=== PATIENT | female | born 1970 | race Caucasian/White ===

== ENCOUNTER 2022-05-01 13:50 | Emergency (ER) | payer OTHER ==
[~2022-05-01] VITALS: Ht 152.4 cm; Wt 74.8 kg
[2022-05-01 14:26] VITALS: BP 127/76
[2022-05-01] MEDS ORDERED: KETOROLAC 30 MG/ML VIAL IM ONE (14:35)
--- NOTE | 2022-05-01 14:41 | NUR ---
52/F PRESENTS TO ED WITH C/O LOWER ABD PAIN RADIATING TO LOWER BACK PAIN SINCE YESTERDAY. PATIENT REPORTS SHE TOOK MOTRIN WITH NO RELIEF. DENIES N/V/D, FEVERS, REPORTS INTERMITTENT EPISODES OF DYSURIA, DENIES HEMATURIA.
[2022-05-01 14:54] LABS: BASOPHILS % (AUTO) 0.6 % (0.0-2.0); EOSINOPHILS # (AUTO) 0.9 K/uL (0-0.4); EOSINOPHILS % (AUTO) 10.9 % (0.0-4.0); HEMOGLOBIN 13.9 g/dL (12.0-16.0); LYMPHOCYTES # (AUTO) 2.2 K/uL (2.5-16.5); LYMPHOCYTES % (AUTO) 25.9 % (20.5-51.1); MEAN CORPUSCULAR HEMOGLOBIN 32 pg (27-31); MEAN CORPUSCULAR HGB CONC 34 g/dL (33-37); MEAN CORPUSCULAR VOLUME 93.7 fL (80-94); MONOCYTES # (AUTO) 0.4 K/uL (0.8-1.0); MONOCYTES % (AUTO) 5.3 % (1.7-9.3); NEUTROPHILS # (AUTO) 4.9 K/uL (1.8-7.7); NEUTROPHILS % (AUTO) 57.3 % (42.2-75.2); PLATELET COUNT (AUTO) 261 K/uL (140-450); RED BLOOD CELL COUNT(AUTO) 4.38 MIL/uL (4.20-5.40); RED CELL DISTRIBUTION WIDTH 13.4 % (11.6-13.7); WHITE BLOOD COUNT (AUTO) 8.5 K/uL (4.8-10.8)
[2022-05-01 14:56] LABS: APPEARANCE,URINE CLEAR (CLEAR); BILIRUBIN,URINE NEGATIVE (NEGATIVE); BLOOD, URINE 1+ (NEGATIVE); COLOR,URINE YELLOW (YELLOW); LEUKOCYTE ESTERASE ,URINE NEGATIVE (NEGATIVE); NITRITE, URINE NEGATIVE (NEGATIVE); UGLUCOSE NEGATIVE (NEGATIVE)
[2022-05-01 15:09] LABS: OTHER CASTS, URINE None Seen /LPF (None Seen); WBC,URINE 0-5 /HPF (0-5)
[2022-05-01 15:27] LABS: ALBUMIN 4.1 g/dL (3.4-5.0); ANION GAP 11.6 (8-16); CARBON DIOXIDE 33.6 mmol/L (21-32); CREATININE 0.8 mg/dL (0.6-1.3); POTASSIUM 4.2 mmol/L (3.5-5.1); TOTAL BILIRUBIN 0.3 mg/dL (0.0-1.0)
--- NOTE | 2022-05-01 15:30 | NUR ---
PT TAKEN TO CT VIA WHEELCHAIR
--- NOTE | 2022-05-01 15:40 | NUR ---
PT BROUGHT BACK FROM CT VIA WHEELCHAIR
[2022-05-01] MEDS ORDERED: LID5T TP (16:49)
[2022-05-01] MEDS ORDERED: CYCL-711 PO (16:49)
[2022-05-01 17:08] VITALS: BP 115/76
--- NOTE | 2022-05-01 17:08 | NUR ---
Patient discharged with v/s stable. Written and verbal after care instructions FOR MUSCLE SPRAIN AND BACK INJURY PREVENTION given and explained. Patient alert, oriented and verbalized understanding of instructions. Ambulatory with steady gait. All questions addressed prior to discharge. ID band removed. Patient advised to follow up with PMD. Rx of FLEXERIL AND LIDODERM PATCH given. Opportunity to ask questions provided and answered.
--- NOTE | 2022-05-01 17:46 | NUR ---
The patient's care was reviewed and supervised by ED Agency Nurse 7, RN, RN.
== END 2022-05-01 17:08 | disposition home or self-care (01) ==
LOC: MED 13:50
DX: N20.0 Calculus of kidney (principal); M54.9 Dorsalgia, unspecified
CPT/HCPCS: 36415; 74176; 80053; 81001; 81025; 83690; 85025; 96372; 99284; J1885

== ENCOUNTER 2022-09-05 22:53 | Emergency (ER) | payer OTHER ==
[~2022-09-05] VITALS: Ht 152.4 cm; Wt 74.4 kg
[~2022-09-05 22:53] MED LIST: CYCL-711 PO; LID5T TP
[2022-09-05 23:04] VITALS: BP 140/87
--- NOTE | 2022-09-05 23:10 | NUR ---
TO LOBBY FOLLOWING TRIAGE
--- NOTE | 2022-09-05 23:24 | NUR ---
pt to bed 5 ambulatory
[2022-09-05 23:30] LABS: BASOPHILS # (AUTO) 0.1 K/uL (0.00-0.22); BASOPHILS % (AUTO) 0.9 % (0.0-2.0); EOSINOPHILS # (AUTO) 1.1 K/uL (0-0.4); EOSINOPHILS % (AUTO) 13.3 % (0.0-4.0); HEMATOCRIT 39.1 % (36-48); HEMOGLOBIN 13.4 g/dL (12.0-16.0); LYMPHOCYTES # (AUTO) 2.7 K/uL (2.5-16.5); MEAN CORPUSCULAR HEMOGLOBIN 32 pg (27-31); MEAN CORPUSCULAR HGB CONC 34 g/dL (33-37); MEAN CORPUSCULAR VOLUME 93.9 fL (80-94); MONOCYTES # (AUTO) 0.6 K/uL (0.8-1.0); MONOCYTES % (AUTO) 7.5 % (1.7-9.3); NEUTROPHILS # (AUTO) 3.9 K/uL (1.8-7.7); NEUTROPHILS % (AUTO) 46.3 % (42.2-75.2); PLATELET COUNT (AUTO) 242 K/uL (140-450); RED BLOOD CELL COUNT(AUTO) 4.16 MIL/uL (4.20-5.40); WHITE BLOOD COUNT (AUTO) 8.3 K/uL (4.8-10.8)
--- NOTE | 2022-09-05 23:33 | NUR ---
urine sample collected and sent to lab.
[2022-09-05 23:36] LABS: APPEARANCE,URINE CLEAR (CLEAR); BILIRUBIN,URINE NEGATIVE (NEGATIVE); BLOOD, URINE 1+ (NEGATIVE); COLOR,URINE YELLOW (YELLOW); LEUKOCYTE ESTERASE ,URINE NEGATIVE (NEGATIVE); NITRITE, URINE NEGATIVE (NEGATIVE); UGLUCOSE NEGATIVE (NEGATIVE)
--- NOTE | 2022-09-05 23:37 | NUR ---
Dr. Taveras examining patient.
[2022-09-05] MEDS ORDERED: HYDROcodone/APAP 5/325 MG 1 TAB TAB PO ONE (23:40)
--- NOTE | 2022-09-05 23:46 | NUR ---
Patient taken to CT scan and X-ray via WC
[2022-09-05 23:47] LABS: RBC,URINE 0-5 /HPF (0-5)
[2022-09-05 23:50] LABS: ANION GAP 10.7 (8-16); CARBON DIOXIDE 31.4 mmol/L (21-32); POTASSIUM 4.1 mmol/L (3.5-5.1); TOTAL BILIRUBIN 0.3 mg/dL (0.0-1.0)
[2022-09-06] MEDS ORDERED: ACET-8905 PO (01:25)
[2022-09-06] MEDS ORDERED: CEFP200T20 PO (01:25)
[2022-09-06 01:40] VITALS: BP 133/87
--- NOTE | 2022-09-06 01:40 | NUR ---
Patient discharged with v/s stable. Written and verbal after care instructions given and explained. Patient alert, oriented and verbalized understanding of instructions. Ambulatory with steady gait. All questions addressed prior to discharge. ID band removed. Patient advised to follow up with PMD. Rx of [place] and Cefpodoxime Proxetil given. Patient educated on indication of medication including possible reaction and side effects. Opportunity to ask questions provided and answered.
== END 2022-09-06 01:40 | disposition home or self-care (01) ==
LOC: MED 22:53
DX: N39.0 Urinary tract infection, site not specified (principal); N20.0 Calculus of kidney; K76.89 Other specified diseases of liver; Z79.899 Other long term (current) drug therapy; Z79.891 Long term (current) use of opiate analgesic
CPT/HCPCS: 36415; 71045; 74176; 80053; 81001; 83690; 85025; 87086; 99284; Q0092

== ENCOUNTER 2023-02-05 14:41 | Emergency (ER) | payer OTHER ==
[~2023-02-05] VITALS: Ht 152.4 cm; Wt 78.5 kg
[~2023-02-05 14:41] MED LIST changes: +ACET-8905 PO; +CEFP200T20 PO
[2023-02-05 15:18] VITALS: BP 121/73; PULSE 62; RESP 20; TEMP 97.6; O2SAT 99
[2023-02-05] MEDS ORDERED: ACETAMINOPHEN EXTRA STRENGTH 500 MG TAB PO ONE (15:40)
[2023-02-05] MEDS ORDERED: KETOROLAC 30 MG/ML VIAL IM ONE (16:30)
[2023-02-05] MEDS ORDERED: KETOROLAC 30 MG/ML VIAL ONE (18:18)
[2023-02-05 18:24] VITALS: BP 121/73; PULSE 62; RESP 20; TEMP 97.6; O2SAT 99
== END 2023-02-05 18:24 | disposition home or self-care (01) ==
LOC: MED 14:41
DX: R51.9 Headache, unspecified (principal); H53.149 Visual discomfort, unspecified; Z79.899 Other long term (current) drug therapy
CPT/HCPCS: 70450; 96372; 99285; J1885

== ENCOUNTER 2023-08-19 22:19 | Emergency (ER) | payer OTHER ==
[~2023-08-19] VITALS: Ht 152.4 cm; Wt 80.7 kg
[2023-08-19 22:44] VITALS: BP 138/95; PULSE 71; RESP 16; TEMP 97.6; O2SAT 97
[2023-08-20] MEDS ORDERED: KETOROLAC 30 MG/ML VIAL ONE (01:47)
[2023-08-20] MEDS ORDERED: methocarbamoL 500 MG TAB ONE (01:47)
[2023-08-20] MEDS: methocarbamoL 500 MG TAB PO ONE (01:49)
[2023-08-20] MEDS: KETOROLAC 30 MG/ML VIAL IM ONE (01:50)
[2023-08-20] MEDS ORDERED: METH-1867 PO (02:51)
[2023-08-20 03:10] VITALS: BP 140/86; PULSE 64; RESP 16; TEMP 98; O2SAT 98
== END 2023-08-20 03:10 | disposition home or self-care (01) ==
LOC: MED 22:19
DX: G44.209 Tension-type headache, unspecified, not intractable (principal); H92.01 Otalgia, right ear; E78.5 Hyperlipidemia, unspecified; E11.9 Type 2 diabetes mellitus without complications; Z79.1 Long term (current) use of non-steroidal anti-inflammatories (NSAID); Z79.899 Other long term (current) drug therapy
CPT/HCPCS: 81025; 96372; 99283; J1885